=== PATIENT | female | born 1990 | race African-American/Black ===

== ENCOUNTER 2021-01-22 20:31 | Emergency (ER) | payer BC ==
[~2021-01-22] VITALS: Ht 162.6 cm; Wt 65.5 kg
[2021-01-22 21:31] LABS: BASO % 0.6 % (0.0-2.0); EOS # 0.1 (0.0-0.7); EOS % 2.6 % (0-4.0); GRAN # 2.2 (1.4-6.5); GRAN % 40.1 % (42.2-75.2); HEMATOCRIT 38.6 % (37.0-47.0); HEMOGLOBIN 12.3 g/dl (12.5-16.0); LYMPH # 2.7 (1.2-3.4); LYMPH % 49.2 % (20.0-51.0); MEAN CELL VOLUME 86 fl (80.0-100.0); MEAN CORPUSCULAR HEMOGLOBIN 28 pg (27.0-31.0); MEAN CORPUSCULAR HGB CONC 32 g/dl (33.0-37.0); MEAN PLATELET VOLUME 10.4 fl (7.4-10.4); MONO # 0.4 (0.1-0.6); MONO % 7.3 % (1.7-9.3); PLATELET COUNT 230 K/mm3 (130-400); RED BLOOD COUNT 4.48 M/mm3 (4.10-5.30); REDCELL DISTRIBUTION WIDTH-CV 12.6 % (11.5-14.5)
[2021-01-22 21:47] LABS: ALANINE AMINOTRANSFERASE 23 U/L (4-34); ALBUMIN 4.2 gm/dL (3.5-5.0); ALKALINE PHOSPHATASE 33 U/L (50-136); ANION GAP 9 mmol/L (7-16); AST,SGOT 28 U/L (15-37); BILIRUBIN,TOTAL 0.2 mg/dL (0.0-1.0); BLOOD UREA NITROGEN 12 mg/dL (7-17); CALCIUM 9.2 mg/dL (8.4-10.2); CARBON DIOXIDE 27 mmol/L (22-30); CHLORIDE 103 mmol/L (98-107); CREATININE, serum 0.81 (0.52-1.25); GLUCOSE 88 mg/dL (74-106); SODIUM 139 mmol/L (137-145); TOTAL PROTEIN 8.3 gm/dL (6.4-8.2)
[2021-01-22 22:04] LABS: TROPONIN-I < 0.012 ng/mL (0.000-0.035)
[2021-01-22 22:20] LABS: CREATINE KINASE 94 U/L (30-135)
[2021-01-22] MEDS ORDERED: PEPCID 20MG TAB20 MG PO (23:46)
[2021-01-23 00:10] VITALS: BP 110/60; PULSE 78; TEMP 98
== END 2021-01-23 00:10 | disposition home or self-care (01) ==
LOC: COL.ER 20:31
PROVIDERS: Emergency Medicine
DX: R07.89 Other chest pain (principal); R10.13 Epigastric pain; R42 Dizziness and giddiness
CPT/HCPCS: J7030

== ENCOUNTER 2022-10-04 12:44 | Emergency (ER) | payer SELFPAY ==
[~2022-10-04] VITALS: Ht 162.6 cm; Wt 67.3 kg
[~2022-10-04 12:44] MED LIST: PEPCID 20MG TAB20 MG PO
[2022-10-04 12:49] VITALS: BP 118/75; TEMP 98
[2022-10-04 14:27] VITALS: PULSE 66
== END 2022-10-04 14:29 | disposition home or self-care (01) ==
LOC: COL.ER 12:44
DX: S61.511A Laceration without foreign body of right wrist, initial encounter (principal); W26.0XXA Contact with knife, initial encounter; Y93.89 Activity, other specified